=== PATIENT | female | born 1995 | race Two or more races ===

== ENCOUNTER 2016-11-02 00:39 | Inpatient (IN) | payer MEDICAID, OTHER ==
[~2016-11-02] VITALS: Ht 165.1 cm; Wt 90.5 kg
[~2016-11-02 00:39] MED LIST: CIPR500T4 PO
[2016-11-06 14:31] VITALS: Ht 165.1 cm; Wt 90.5 kg
[2016-11-06 14:32] VITALS: BP 111/66; PULSE 19; RESP 19
[2016-11-06] MEDS ORDERED: FER325 PO (14:38)
[2016-11-06] MEDS ORDERED: PREN-93 PO (14:38)
[2016-11-06] MEDS: LACTATED RINGER'S 1,000 ML IV SCH ×2 (14:56→20:37)
[2016-11-06] MEDS ORDERED: BUTORPHANOL 2 MG INJ IV PRN ×2 (15:00)
[2016-11-06] MEDS ORDERED: OXYTOCIN 30 UNITS/LR 500 ML IV PRN (15:00)
[2016-11-06] MEDS ORDERED: CARBOPROST 250 MCG INJ IM PRN (15:00)
[2016-11-06] MEDS ORDERED: IBUPROFEN 600 MG TAB PO PRN (15:00)
[2016-11-06] MEDS ORDERED: LIDOCAINE 1% (MPF) 30 ML INJ INJ PRN (15:00)
[2016-11-06] MEDS ORDERED: MISOPROSTOL 200 MCG TAB PR PRN (15:00)
[2016-11-06] MEDS ORDERED: METHYLERGONOVINE 0.2 MG INJ IM PRN (15:00)
[2016-11-06 15:32] LABS: ADD SCAN DIFF NO
[2016-11-06 15:38] LABS: BASOPHILS % 0.4 % (0.0-2.0); EOSINOPHILS # 0.1 10^3/ul (0.0-0.5); EOSINOPHILS % 0.5 % (0.0-7.0); HEMATOCRIT 35.3 % (37.0-47.0); HEMOGLOBIN 12.1 g/dl (12.0-16.0); LYMPHOCYTES % 19.4 % (15.0-51.0); MEAN CORPUSCULAR HEMOGLOBIN 31.4 pg (29.0-33.0); MEAN CORPUSCULAR HGB CONC 34.3 g/dl (32.0-37.0); MEAN CORPUSCULAR VOLUME 91.7 fl (82.0-101.0); MEAN PLATELET VOLUME 11.8 fl (7.4-10.4); MONOCYTE # 0.5 10^3/ul (0.3-0.9); MONOCYTES % 5.2 % (0.0-11.0); NEUTROPHIL # 7.5 10^3/ul (1.6-7.5); NEUTROPHILS % 73.6 % (39.0-77.0); PLATELET COUNT 195 10^3/UL (140-415); RED BLOOD COUNT 3.85 10^6/ul (4.20-5.40); RED CELL DISTRIBUTION WIDTH 13.4 % (11.5-14.5); WHITE BLOOD COUNT 10.2 10^3/ul (4.8-10.8)
[2016-11-06 15:48] LABS: INR 0.88; PROTIME 11.9 Sec (12.2-14.2); PT RATIO 0.9
[2016-11-06 15:49] LABS: PARTIAL THROMBOPLASTIN TIME 25.2 Sec (25.0-35.0)
--- NOTE | 2016-11-06 17:29 | HP ---
Date/Time of Note Date/Time of Note DATE: 11/06/16 TIME: 17:12 OB - History Hx of Present Free Text/Dictation 21 years old female 1 para 0 with a EDC November 04 2016 admitted to [facility] in early labor at 40 weeks and 2 days Pelvic examination on admission cervix 3 cm dilated 70% effaced vertex at -2 station heart category 1 This patient has been under the care of the [facility] and her was not complicated with gestational diabetes -induced hypertension. [employer]INAL RESEARCHER history Menarche at age 10 regular periods Every 28 days, no history of previous pregnancies surgeries or hospital admission. Allergies denies allergy to any known medication Social habit denies a smoking or drinking Review of system within normal Physical examination 5 feet 5 200 pounds total weight gain during the 40 pounds Temperature 99.3 pulse 73 respiration 18 blood pressure 112/61 Head ears nose and throat negative Neck supple no thyromegaly Lungs clear to P&A Heart normal sinus rhythm no murmur Abdomen fundal height 37 cm from symphysis pubis heart rate category 1 Pelvic exam cervix 3 cm dilated 70% effaced vertex at -2 station Extremities no edema no varicosities Impression intrauterine at 40 weeks and 2 days in early labor. Estimated Due Date: Nov 04, 2016 : 1 Para: 0 Care: Good Care Ultrasounds: Normal mid trimester US Obstetrical Complications: None Medical Complications: None Past Family/Social History * Past Medical, Surgical, Family and Obstetric Histories reviewed from chart. Rubella: immune RPR/VDRL: Negative GBS Status: Negative HBsAG: Negative OB Admission Exam Vital Signs Vital Signs Vital Signs Date Time Temp Pulse Resp B/P Pulse Ox O2 Delivery O2 Flow Rate FiO2 11/06/16 14:32 99.3 19 19 111/66 Room Air Physical Exam HEENT: WNL Heart: Rhythm Normal Lungs: Clear, Equal Abdomen: WNL Extremities: Normal Reflexes: Normal Cervical Dilatation: 3cm Effacement: 75% Station: -2 Membranes: Intact Heart Rate: 130's Accelerations: Accelerations Present Decelerations: No Decelerations Varibility: Moderate Contractions on Admission: >10 Minutes Apart Intensity: Mild Last 72 hours Lab Results CBC & BMP 11/06/16 14:48 OB Assessment/Plan Reason for admission: other (40 weeks 2 days 1 para 0 early labor) Plan: Expectant Management KASSIE ELDRIDGE MD Nov 06, 2016 17:23
[2016-11-06] MEDS ORDERED: LACTATED RINGER'S 1,000 ML IV PRN (20:00)
[2016-11-07] MEDS ORDERED: OXYTOCIN 30 UNITS/LR 500 ML IV SCH (04:00)
[2016-11-07] MEDS: LACTATED RINGER'S 1,000 ML IV SCH ×3 (04:22→18:58)
[2016-11-07] MEDS ORDERED: LACTATED RINGER'S 1,000 ML IV ONE (14:03)
[2016-11-07] MEDS ORDERED: FENTAnyl 2MCG/ML-ROPIV 0.2% 100 ML ONE (14:12)
[2016-11-07] MEDS ORDERED: CITRIC ACID/SODIUM CITRATE 15 ML CUP PO ONE (14:30)
[2016-11-07] MEDS ORDERED: NALOXONE (0.4 MG/ML) INJ IV PRN (14:30)
[2016-11-07] MEDS ORDERED: FENTAnyl 2MCG/ML-ROPIV 0.2% 100 ML BAG EPI SCH (14:30)
[2016-11-07] MEDS ORDERED: DIPHENHYDRAMINE 50 MG INJ IV PRN (14:30)
[2016-11-07] MEDS ORDERED: KETOROLAC 30 MG INJ IV PRN (14:30)
[2016-11-07] MEDS ORDERED: morphine 2 MG INJ IV PRN ×2 (14:30)
[2016-11-07] MEDS ORDERED: ONDANSETRON 4 MG INJ IV PRN (14:30)
[2016-11-07] MEDS ORDERED: ONDANSETRON 4 MG INJ IV ONE (14:30)
[2016-11-07] MEDS ORDERED: PROCHLORPERAZINE 10 MG INJ IV PRN (14:30)
--- NOTE | 2016-11-07 16:25 | QN ---
Documentation Comment Patient on low-dose Pitocin for labor augmentation cervix still at 3-4 cm 70% effaced -1 station jess every 3-4 minutes labor epidural heart category 1, KASSIE ELDRIDGE MD Nov 07, 2016 16:25
--- NOTE | 2016-11-08 01:52 | LDN ---
Date/Time of Note Date/Time of Note DATE: 11/08/16 TIME: 01:49 Delivery Summary Weeks of Gestation 40 weeks and 4 days Placenta Delivered: Spontaneously Meconium: none Episiotomy: No Perineal laceration: 1 Laceration repair: First degree laceration repaired with 3-0 Vicryl. Anesthesia type: Epidural Estimated blood loss: 200 Sponge & Needle done & correct: Yes All needle counts correct: Yes Any foreign bodies felt in the: No Problems: Delivery Information Sex Infant Sex: male Apgars 1 Minute: 9 5 Minute: 10 Suctioning Nose & mouth suctioned at vasiliy: Yes Delee suction performed: No Umbilical Cord Umbilical cord with: 3 Vessels Cord presentations: nuchal cord Nuchal cord present X: 1 Cord Blood was obtained: Yes Mother & Baby Disposition Disposition Mom & Baby to Maternity; Good: Yes CHARISSE TURNER MD Nov 08, 2016 01:52
[2016-11-08 02:56] LABS: ADD SCAN DIFF NO
[2016-11-08 02:58] LABS: BASOPHILS % 0.2 % (0.0-2.0); EOSINOPHILS % 0.1 % (0.0-7.0); HEMOGLOBIN 11.6 g/dl (12.0-16.0); LYMPHOCYTES # 0.8 10^3/ul (0.8-2.9); LYMPHOCYTES % 4.1 % (15.0-51.0); MEAN CORPUSCULAR HEMOGLOBIN 31.5 pg (29.0-33.0); MEAN CORPUSCULAR HGB CONC 34.1 g/dl (32.0-37.0); MEAN CORPUSCULAR VOLUME 92.4 fl (82.0-101.0); MEAN PLATELET VOLUME 11.6 fl (7.4-10.4); MONOCYTE # 1.1 10^3/ul (0.3-0.9); MONOCYTES % 5.5 % (0.0-11.0); NEUTROPHIL # 17.5 10^3/ul (1.6-7.5); NEUTROPHILS % 88.8 % (39.0-77.0); PLATELET COUNT 167 10^3/UL (140-415); RED BLOOD COUNT 3.68 10^6/ul (4.20-5.40); RED CELL DISTRIBUTION WIDTH 13.1 % (11.5-14.5); WHITE BLOOD COUNT 19.7 10^3/ul (4.8-10.8)
[2016-11-08] MEDS: AMPICILLIN/SULB 3 GM/NS (PMX) 100 ML IVPB SCH ×4 (03:07→21:35)
[2016-11-08] MEDS ORDERED: OXYTOCIN 30 UNITS/LR 500 ML IV SCH ×2 (04:00)
[2016-11-08] MEDS ORDERED: DIBUCAINE 1% 30 GM OINT PR PRN (04:30)
[2016-11-08] MEDS ORDERED: CARBOPROST 250 MCG INJ IM PRN (04:30)
[2016-11-08] MEDS ORDERED: MISOPROSTOL 200 MCG TAB PR PRN (04:30)
[2016-11-08] MEDS ORDERED: BENZOCAINE 20% 56 ML SPRAY TOP PRN (04:30)
[2016-11-08] MEDS ORDERED: METHYLERGONOVINE 0.2 MG INJ IM PRN (04:30)
[2016-11-08] MEDS ORDERED: OXYTOCIN 30 UNITS/LR 500 ML IV PRN (04:30)
[2016-11-08] MEDS ORDERED: ACETAMINOPHEN/CODEINE #3 TAB PO PRN (04:30)
[2016-11-08] MEDS ORDERED: WITCH HAZEL/GLYCERIN PAD PR PRN (04:30)
[2016-11-08] MEDS ORDERED: ACETAMINOPHEN 325 MG TAB PO PRN (04:30)
[2016-11-08 04:40] VITALS: BP_SYST 132; PULSE 95; RESP 18
[2016-11-08 05:10] VITALS: BP 132/63; PULSE 98; RESP 18
[2016-11-08] MEDS: IBUPROFEN 600 MG TAB PO SCH ×4 (06:14→23:41)
[2016-11-08] MEDS: LACTATED RINGER'S 1,000 ML IV* SCH ×3 (06:54→18:48)
[2016-11-08 08:00] VITALS: BP 111/53; PULSE 101; RESP 18
[2016-11-08] MEDS: SENNA/DOCUSATE NA (8.6MG/50MG) TAB PO SCH ×2 (09:26→21:35)
[2016-11-08 12:00] VITALS: BP 110/50; PULSE 98; RESP 16
[2016-11-08 16:30] VITALS: BP 129/83; PULSE 84; RESP 17
[2016-11-08 19:45] VITALS: BP_SYST 113; BP_SYST 115; BP_DIAS 54; BP_DIAS 75; PULSE 73; PULSE 81; RESP 18
[2016-11-09 00:36] VITALS: BP 109/52; PULSE 72; RESP 18
[2016-11-09] MEDS: AMPICILLIN/SULB 3 GM/NS (PMX) 100 ML IVPB SCH ×3 (03:45→12:00)
[2016-11-09 04:00] VITALS: BP 118/54; PULSE 83; RESP 18
[2016-11-09] MEDS: IBUPROFEN 600 MG TAB PO SCH ×3 (05:33→17:55)
[2016-11-09 08:16] LABS: ADD SCAN DIFF NO
[2016-11-09 08:17] LABS: BASOPHIL # 0.1 10^3/ul (0.0-0.1); BASOPHILS % 0.5 % (0.0-2.0); EOSINOPHILS # 0.1 10^3/ul (0.0-0.5); EOSINOPHILS % 0.8 % (0.0-7.0); HEMOGLOBIN 10.4 g/dl (12.0-16.0); LYMPHOCYTES # 2.7 10^3/ul (0.8-2.9); LYMPHOCYTES % 16.3 % (15.0-51.0); MEAN CORPUSCULAR HEMOGLOBIN 31.4 pg (29.0-33.0); MEAN CORPUSCULAR HGB CONC 33.5 g/dl (32.0-37.0); MEAN CORPUSCULAR VOLUME 93.7 fl (82.0-101.0); MONOCYTE # 0.8 10^3/ul (0.3-0.9); NEUTROPHIL # 12.8 10^3/ul (1.6-7.5); NEUTROPHILS % 76.4 % (39.0-77.0); PLATELET COUNT 165 10^3/UL (140-415); RED BLOOD COUNT 3.31 10^6/ul (4.20-5.40); RED CELL DISTRIBUTION WIDTH 14.1 % (11.5-14.5); WHITE BLOOD COUNT 16.7 10^3/ul (4.8-10.8)
[2016-11-09 08:30] VITALS: BP 111/69; PULSE 75; RESP 18
[2016-11-09] MEDS: SENNA/DOCUSATE NA (8.6MG/50MG) TAB PO SCH ×2 (10:09→21:32)
--- NOTE | 2016-11-09 13:50 | PN ---
Date/Time of Note Date/Time of Note DATE: 11/09/16 TIME: 13:48 OB Subjective Subjective Subjective November 09, 2016 Post day 1 Patient is doing well, Ambulatory She is afebrile Abdomen is soft , Fundus is firm Moderate amount of lochia Breasts are soft, Nipples are intact No calf tenderness. Perineum is healing well. Breast feeding the new born. Patient was having a temperature during labor and . She was placed on antibiotic Unasyn but now she is 24 hours after delivery she is afebrile as I mentioned above she is doing well Her temperature now is 97.7 and as I mentioned antibiotics DC Laboratory Tests Test 11/09/16 08:10 White Blood Count 16.710^3/ul Red Blood Count 3.3110^6/ul Hemoglobin 10.4g/dl Hematocrit 31.0% Mean Corpuscular Volume 93.7fl Mean Corpuscular Hemoglobin 31.4pg Mean Corpuscular Hemoglobin Concent 33.5g/dl Red Cell Distribution Width 14.1% Platelet Count 09682^3/UL Mean Platelet Volume 11.0fl Neutrophils % 76.4% Lymphocytes % 16.3% Monocytes % 5.0% Eosinophils % 0.8% Basophils % 0.5% Nucleated Red Blood Cells % 0.0/100WBC Neutrophils # 12.810^3/ul Lymphocytes # 2.710^3/ul Monocytes # 0.810^3/ul Eosinophils # 0.110^3/ul Basophils # 0.110^3/ul Nucleated Red Blood Cells # 0.010^3/ul Current Medications Medications (Trade) Dose Ordered Sig/Fabiano Route PRN Reason Start Time Stop Time Status Last Admin Dose Admin Lactated Ringer's (Lr) 1,000 ml @ 125 mls/hr Q8H IV 11/06/16 14:38 11/08/16 04:25 DC 11/07/16 18:58 Butorphanol Tartrate (Stadol) 1 mg Q2H PRN IV PAIN 11/06/16 15:00 11/08/16 04:25 DC Butorphanol Tartrate (Stadol) 2 mg Q2H PRN IV PAIN 11/06/16 15:00 11/08/16 04:25 DC Lidocaine (Xylocaine 1% (Mpf)) 30 ml ONCE PRN INJ EPISIOTOMY/TEARING 11/06/16 15:00 11/08/16 04:25 DC Ibuprofen 600 mg 600 mg ONCE PRN PO Mild Pain (Pain Score 1-3) 11/06/16 15:00 11/08/16 04:25 DC Lactated Ringer's 1,000 ml @ 2,000 mls/hr Q30M PRN IV PRE-EPIDURAL BOLUS 11/06/16 20:00 11/08/16 04:25 DC 11/07/16 14:17 Oxytocin/Lactated Ringer's 500 ml @ 0 mls/hr ONCE PRN IV For Hemorrhage Management 11/06/16 15:00 11/08/16 04:25 DC Methylergonovine Maleate (Methergine) 0.2 mg ONCE PRN IM VAGINAL BLEEDING 11/06/16 15:00 11/08/16 04:25 DC Carboprost Tromethamine (Hemabate) 250 mcg ONCE PRN IM VAGINAL BLEEDING 11/06/16 15:00 11/08/16 04:25 DC Misoprostol 1000 mcg 1,000 mcg ONCE PRN NE VAGINAL BLEEDING 11/06/16 15:00 11/08/16 04:25 DC Oxytocin/Lactated Ringer's 500 ml @ 0 mls/hr TITRATE IV 11/07/16 04:00 11/08/16 04:25 DC 11/07/16 04:21 Naloxone HCl (Narcan) 0.1 mg Q2M PRN IV FOR RESP RATE 8 OR LESS 11/07/16 14:30 11/08/16 04:25 DC Ketorolac Tromethamine (Toradol) 30 mg Q6H PRN IV PAIN 11/07/16 14:30 11/08/16 04:25 DC Morphine Sulfate (morphine) 2 mg Q3H PRN IV PAIN LEVEL 1-5 11/07/16 14:30 11/08/16 04:25 DC Morphine Sulfate (morphine) 4 mg Q3H PRN IV PAIN LEVEL 6-10 11/07/16 14:30 11/08/16 04:25 DC Diphenhydramine HCl (Benadryl) 25 mg Q6H PRN IV ITCHING 11/07/16 14:30 11/08/16 04:25 DC Ondansetron HCl (Zofran Inj) 4 mg Q6H PRN IV NAUSEA AND/OR VOMITING 11/07/16 14:30 11/08/16 04:25 DC 11/07/16 20:39 Prochlorperazine (Compazine Inj) 10 mg ONCE PRN IV NAUSEA AND/OR VOMITING 11/07/16 14:30 11/08/16 04:25 DC Fentanyl/ Ropivacaine 100 ml 100 ml EPIDURAL INFUSION EPI 11/07/16 14:30 11/08/16 04:25 DC 11/07/16 20:50 Lactated Ringer's (Lr) 1,000 ml @ 1,000 mls/hr Q1H ONCE IV 11/07/16 14:03 11/07/16 15:02 DC 11/07/16 17:53 Ondansetron HCl (Zofran Inj) 4 mg pre-procedure ONCE IV 11/07/16 14:30 11/07/16 14:31 DC Citric Acid/ Sodium Citrate 30 ml 30 ml PRE-PROCEDURE ONCE PO 11/07/16 14:30 11/07/16 14:31 DC Fentanyl/ Ropivacaine 100 ml @ ud [facility]-MED ONCE .ROUTE 11/07/16 14:12 11/07/16 14:13 DC Ampicillin Sodium/ Sulbactam Sodium 100 ml @ 100 mls/hr Q6 IVPB 11/08/16 02:00 11/09/16 10:09 Oxytocin/Lactated Ringer's 500 ml @ 125 mls/hr ONCE -MAY REPEAT X1 IV 11/08/16 04:00 11/08/16 03:50 Oxytocin/Lactated Ringer's 500 ml @ 125 mls/hr ONCE IV 11/08/16 04:00 11/08/16 03:51 Lactated Ringer's (Lr) 1,000 ml @ 125 mls/hr Q8H IV* 11/08/16 04:20 11/08/16 06:54 Ibuprofen (Motrin) 600 mg Q6 PO 11/08/16 06:00 11/09/16 11:30 Acetaminophen (Tylenol Tab) 650 mg Q4H PRN PO PAIN LEVEL 1-5 11/08/16 04:30 Acetaminophen/ Codeine Phosphate (Tylenol No.3) 1 tab Q4H PRN PO PAIN LEVEL 1-5 11/08/16 04:30 Senna/Docusate Sodium (Senokot-S) 1 tab BID PO 11/08/16 09:00 11/09/16 10:09 Witch Divina/ Glycerin (Tucks Pads) 1 pad BEDSIDE MEDICATION PRN NE HEMORRHOID/EPISIOTMY PAIN 11/08/16 04:30 11/08/16 06:14 Benzocaine (Dermoplast [place]) 1 spray BEDSIDE MEDICATION PRN TOP HEMORRHOID/EPISIOTMY PAIN 11/08/16 04:30 11/08/16 06:14 Dibucaine (Nupercainal) 1 applic BEDSIDE MEDICATION PRN NE HEMORRHOID/EPISIOTMY PAIN 11/08/16 04:30 Diphtheria/ Tetanus/Acell Pertussis 0.5 ml 0.5 ml ONCE ONCE IM* 11/10/16 09:00 11/10/16 09:01 Oxytocin/Lactated Ringer's 500 ml @ 0 mls/hr ONCE PRN IV For Hemorrhage Management 11/08/16 04:30 Methylergonovine Maleate (Methergine) 0.2 mg ONCE PRN IM VAGINAL BLEEDING 11/08/16 04:30 Carboprost Tromethamine (Hemabate) 250 mcg ONCE PRN IM VAGINAL BLEEDING 11/08/16 04:30 Misoprostol (Cytotec) 1,000 mcg ONCE PRN NE VAGINAL BLEEDING 11/08/16 04:30 SEBASTIÁN GEORGE MD Nov 09, 2016 13:50
[2016-11-09 16:00] VITALS: BP 111/62; PULSE 75; RESP 18
[2016-11-09 20:05] VITALS: BP 126/72; PULSE 66; RESP 18
[2016-11-10 04:30] VITALS: BP 116/70; RESP 18
[2016-11-10] MEDS: IBUPROFEN 600 MG TAB PO SCH ×3 (06:00→12:11)
[2016-11-10 08:00] VITALS: BP 122/70; PULSE 62; RESP 19
[2016-11-10] MEDS ORDERED: DIPHTH/TET/ACEL PERTUSS (ADULT) 0.5 ML VIAL IM* ONE (09:00)
[2016-11-10] MEDS: SENNA/DOCUSATE NA (8.6MG/50MG) TAB PO SCH (12:11)
--- NOTE | 2016-11-10 12:50 | PD.PPDC ---
GREENHOUSE WORKER Discharge Instruction Condition Patient Condition: Good Diet Diet: Resume Regular Diet Activity/Restrictions Restrictions: No Exercising No Lifting No Driving No Sexual Activity Nothing in the Vagina No [place] No Tampons, douche Follow-up Follow-up with Physician: Week/Weeks Provider Information: instructions given patient advised to make an appointment to be seen at the clinic in 2 weeks for check Return to clinic for RN WOUND Instructions: Fever greater than 101 Chills Worsening abdominal pain Excessive Vaginal Bleeding More than 2 pads per hour Unable to tolerate diet OB Instructions: Breast Tenderness Depression Blurried Vision Headache Surgical Instructions: Incisional Drainage Incisional Redness KASSIE ELDRIDGE MD Nov 10, 2016 12:50
--- NOTE | 2016-11-10 12:52 | DS ---
Date/Time of Note Date/Time of Note DATE: 11/10/16 TIME: 12:51 Discharge Summary Admission/Discharge Info Admit Date/Time Nov 06, 2016 at 13:18 Discharge Date/Time November 10, 2016 at 1250 Final Diagnosis Post normal vaginal delivery day 2 Patient Condition: Good Procedures Normal vaginal delivery Hx of Present Illness Term intrauterine Hospital Course Satisfactory uneventful Home Meds Active Scripts Ciprofloxacin Hcl* (Ciprofloxacin Hcl*) 500 Mg Tablet, 500 MG PO BID for 7 Days , TAB Prov:EM RATLIFF PA-C 12/31/15 Reported Medications Ferrous Sulfate* (Ferrous Sulfate*) 325 Mg Tabec, 325 MG PO DAILY, TAB 11/06/16 Vit No.124/Iron/FA ( Vitamin Tablet) 1 Each Tablet, 1 EACH PO, TAB 11/06/16 [None] No Conflict Check 10/03/10 Follow-up Plan Appointment clinic in 2 weeks for check Primary Care Provider Care Physician No Primary Time spent on discharge: < 30 minutes KASSIE ELDRIDGE MD Nov 10, 2016 12:52
== END 2016-11-10 14:00 | disposition home or self-care (01) | DRG 775 ==
LOC: EDSTATUS 13:15 → L-D 11-06 13:18 → PP1 11-08 04:37
PROVIDERS: ADMIT Obstetrics & Gynecology; ATTEND Obstetrics & Gynecology
PROC: 10E0XZZ Delivery of Products of Conception, External Approach (ICD-10-PCS; principal; 2016-11-08)
PROC: 0HQ9XZZ Repair Perineum Skin, External Approach (ICD-10-PCS; 2016-11-08)
PROC: 3E00X4Z Introduction of Serum, Toxoid and Vaccine into Skin and Mucous Membranes, External Approach (ICD-10-PCS; 2016-11-10)
DX: O48.0 Post-term pregnancy (principal); O69.81X0 Labor and delivery complicated by cord around neck, without compression, not applicable or unspecified; O70.0 First degree perineal laceration during delivery; Z23 Encounter for immunization; Z3A.40 40 weeks gestation of pregnancy; Z37.0 Single live birth
CPT/HCPCS: 62319; 85025; 85610; 85730; 86592; 86900; 86901; 87040; 87070; 87086; 87340; 88307; 90715; J0295; J2405; J2590; J3010; J7120